=== PATIENT | male | born 2000 | race Caucasian/White ===

== ENCOUNTER → 2023-01-13 08:25 | Outpatient (CLI) | payer OTHER, SELFPAY | PROVIDERS: Visit Provider Nurse Practitioner Family | DX: J02.9 Acute pharyngitis, unspecified (principal) | CPT/HCPCS: 87070 ==

== ENCOUNTER → 2023-01-13 08:27 | Outpatient (CLI) | payer OTHER, SELFPAY ==
[2023-01-13 12:26] LABS: Urine N gonorrhoeae NOT DETECTED
[2023-01-13 12:46] LABS: Urine Chlamydia NOT DETECTED
[2023-01-13 18:51] LABS: HIV 1 & 2 Ab/Ag 4th Gen Combo NEGATIVE (NEGATIVE); Hep C Virus Ab w/Reflex Quant NEGATIVE s/c (NEGATIVE); Hepatitis B Surface Antigen NEGATIVE s/c (NEGATIVE)
[2023-01-14 12:30] LABS: HSV 2 IGG AB < 0.91 index (0.00-0.90); HSV1IGG < 0.91 index (0.00-0.90); RPR Screen Non Reactive (Non Reactive)
== END ==
PROVIDERS: Referring Provider Nurse Practitioner Family; Visit Provider Nurse Practitioner Family
DX: Z11.3 Encounter for screening for infections with a predominantly sexual mode of transmission (principal); J02.9 Acute pharyngitis, unspecified
CPT/HCPCS: 36415; 86592; 86695; 86696; 86803; 87070; 87077; 87147; 87340; 87389; 87491; 87591

== ENCOUNTER 2024-10-03 14:26 | Observation (INO) | payer OTHER, SELFPAY ==
[2024-10-03] VITALS (12 sets, daily range): BP systolic 118–162; BP diastolic 65–93; PULSE 64–74; RESP 16–18; TEMP 37–37.6; O2SAT 98–100; BMI 26.6
[2024-10-03 15:01] LABS: Add Manual Diff / Slide Review NO; Basophils Absolute Auto 100 /uL (0-100); Basophils Percent Auto 0.8 % (0-2); Eosinophils Absolute Auto 200 /uL (0-450); Eosinophils Percent Auto 3.3 % (2-4); Hematocrit 43.2 % (41-53); Hemoglobin 14.5 g/dL (13.5-17.5); Lymphocytes Absolute Auto 1900 /uL (1100-4500); Lymphocytes Percent Auto 27.8 % (25-40); Mean Corpuscular HGB Conc 33.5 % (30-36); Mean Corpuscular Hemoglobin 30.2 PG (26-34); Mean Corpuscular Volume 90.1 fL (80-100); Monocytes Absolute Auto 600 /uL (0-900); Neutrophils Absolute Auto 4100 /uL (1500-7000); Neutrophils Percent Auto 59.1 % (50-75); Platelet Count 360 X10^3/uL (150-400); Red Blood Cell Count 4.79 X10^6/uL (4.5-5.9); Red Cell Distribution Width 12.6 % (11.6-14.8); White Blood Cell Count 6.9 X10^3/uL (4.5-11.0)
[2024-10-03 15:12] LABS: Alanine Aminotransferase 53 IU/L (<50); Albumin Globulin Ratio 1.3 (1.0-2.8); Alkaline Phosphatase 79 U/L (38-126); Aspartate Aminotransferase 44 IU/L (17-59); Calcium 9.6 mg/dL (8.4-10.2); Carbon Dioxide 25 mmol/L (22-32); Chloride 102 mmol/L (98-107); Glucose 89 mg/dL (70-100); HEMOLYSIS < 15 (0-50); Lipase 66 U/L (23-300); Potassium 4.1 mmol/L (3.4-5.1); Sodium 138 mmol/L (137-145)
[2024-10-03 15:23] LABS: BUN Creatinine Ratio 14.7 (6-22); Blood Urea Nitrogen 14 mg/dL (9-20); Estimated Glomerular Filt Rate > 60 mL/min (>60)
--- NOTE | 2024-10-03 18:28 | DI.CT.S_ITS ---
PROCEDURE: CT ABDOMEN PELVIS W CON INDICATIONS: RLQ pain TECHNIQUE: After the administration of intravenous contrast, axial sections acquired from the lung bases to the pubic symphysis. Coronal and sagittal reformats were performed. For radiation dose reduction, the following was used: automated exposure control, adjustment of mA and/or kV according to patient size. COMPARISON: None. FINDINGS: Image quality: Diagnostic. Lower Chest: No significant findings. ABDOMEN: Liver: No solid mass. Gallbladder: No radiopaque gallstones or wall thickening. Biliary ducts: No biliary dilation. Pancreas: No ductal dilation. Spleen: Size is within normal limits. Adrenal Glands: No adrenal nodules. Kidneys and Ureters: No hydronephrosis. No solid mass. No complex renal cystic lesion which requires follow up. Stomach and Bowel: Dilated appendix measuring up to 10 mm in diameter with periappendiceal fat stranding. No calcified appendiculolith is seen. No focal fluid collection or pneumoperitoneum. Small bowel loops and stomach are unremarkable. Peritoneum: No abnormal intraperitoneal fluid. No free air. Ventral Wall: No significant ventral hernia. Abdominal Nodes: No retroperitoneal or mesenteric adenopathy by size criteria. Vessels: Aorta and inferior vena cava are normal in size. PELVIS: Pelvic Organs: Unremarkable. Bladder: No bladder wall thickening, accounting for underdistention. Pelvic Nodes: No enlarged lymph nodes. Miscellaneous: Small fat containing inguinal hernias. Bones: No aggressive osseous abnormality. IMPRESSION: Acute appendicitis. Findings were discussed with the Dr. Snowden of the Emergency Department by telephone on 10/03/2024 at 7:34 PM. Approved by: Paul Merino M.D. on 10/03/2024 at 19:35
--- NOTE | 2024-10-03 19:00 | ED_ITS ---
HPI - Abdominal Pain General Chief Complaint: Abdominal Pain Stated Complaint: per pt appendix pain Time Seen by Provider: 10/03/24 18:59 Source: patient, RN notes reviewed and old records reviewed Mode of arrival: Ambulatory Limitations: no limitations History of Present Illness HPI narrative: 24-year-old male with complaint of right lower quadrant for the past 1-1/2 weeks has been constant for the past 2 days intermittent bilateral flank pain. Patient states pain is localized to the right lower quadrant. Has been present there for about a week is painful when he pushes on it. No fevers. No nausea or vomiting. States he has had normal bowel movements, normal urination. States he has not had any black or bloody stools. Had a brief twinge of testicular pain earlier today but states he thought that was from his pants. Patient states no daily prescription medications. He had did have a prescription for Flexeril for the flank pain but was not helpful. Has had prior surgery on his hand but no other surgeries. Describes an allergy to penicillin amoxicillin as hives at age 6. Denies any regular tobacco, no alcohol or recreational drugs. Related Data Previous Rx's Medication Instructions Recorded cyclobenzaprine 10 mg tablet 10 mg PO BEDTIME PRN muscle spasm 09/27/24 #20 tabs Allergies Allergy/AdvReac Type Severity Reaction Status Date / Time Penicillins Allergy Intermediate Hives Verified 10/03/24 14:44 amoxicillin Allergy Intermediate Hives Uncoded 10/03/24 14:44 Review of Systems Review of Systems ROS Unobtainable: All systems reviewed & are unremarkable except as noted in HPI and below Patient History Social History Smoking Status: Unknown if ever smoked Smoking Status: Unknown if ever smoked Exam Narrative Exam Narrative: GENERAL: Alert and oriented x three, male in mild distress HEENT: Head normocephalic, atraumatic, EOMI, pupils reactive, face symmetric, moist mucous membranes NECK: Supple, full range of motion CARDIOVASCULAR: Regular rate and rhythm without murmurs, rubs or gallops. RESPIRATORY: Breath sounds equal bilaterally, no wheezes rales or rhonchi. ABDOMEN: Soft, mild tenderness in the right lower quadrant. Normoactive bowel sounds all 4 quadrants. No guarding or rebound, rigidity, no mass : No CVA tenderness EXTREMITIES: Normal range of motion, no clubbing or edema. Neurovascularly intact NEUROLOGICAL: Cranial nerves II through XII grossly intact. Moving all extremities SKIN: Warm, dry, no petechiae, no rashes or lesions. Initial Vital Signs Initial Vital Signs: Vital Signs Temperature 98.6 F 10/03/24 14:39 Pulse Rate 74 10/03/24 14:39 Respiratory Rate 16 10/03/24 14:39 Blood Pressure 153/76 H 10/03/24 14:39 Pulse Oximetry 98 10/03/24 14:39 Oxygen Delivery Method Room Air 10/03/24 14:39 Course Orders Ordered: ED Orders 10/03/24 14:44 EKG-12 Lead Stat 10/03/24 14:52 Complete Blood Count AUTO DIFF Stat Comprehensive Metabolic Panel Stat Lipase Stat 10/03/24 18:28 CT abdomen pelvis w con Stat Metronidazole (Flagyl) 500 mg in 100 mls @ 100 mls/hr IV NOW ONE Stop: 10/03/24 20:42 Last Admin: 10/03/24 20:10 Dose: 100 mls/hr Documented By: Ciprofloxacin (Cipro) 400 mg in 200 mls @ 200 mls/hr IV NOW ONE Stop: 10/03/24 20:42 Discontinued Medications Ondansetron HCl (Ondansetron 4 Mg/2 Ml Inj) 4 mg IV NOW PRN PRN Reason: Nausea And Vomiting Ondansetron HCl (Ondansetron 4 Mg Odt) 4 mg PO NOW PRN PRN Reason: Nausea And Vomiting Vital Signs Vital signs: Vital Signs - 8 hr 10/03/24 14:39 10/03/24 15:57 10/03/24 15:59 Temperature 98.6 F Pulse Rate 74 69 70 Respiratory Rate 16 Blood Pressure 153/76 H Pulse Oximetry 98 100 99 Oxygen Delivery Method Room Air 10/03/24 15:59 10/03/24 16:00 10/03/24 16:01 Temperature Pulse Rate 71 71 Respiratory Rate Blood Pressure 134/93 H Pulse Oximetry 100 99 Oxygen Delivery Method 10/03/24 16:01 10/03/24 16:30 10/03/24 16:30 Temperature Pulse Rate 69 Respiratory Rate Blood Pressure 162/85 H 127/81 Pulse Oximetry 99 Oxygen Delivery Method 10/03/24 16:47 10/03/24 16:47 10/03/24 17:00 Temperature Pulse Rate 67 67 Respiratory Rate 18 Blood Pressure 138/65 Pulse Oximetry 100 98 Oxygen Delivery Method Room Air 10/03/24 17:00 10/03/24 17:30 10/03/24 17:30 Temperature Pulse Rate 67 Respiratory Rate Blood Pressure 128/70 118/73 Pulse Oximetry 99 Oxygen Delivery Method 10/03/24 18:00 10/03/24 18:00 Temperature Pulse Rate 64 Respiratory Rate Blood Pressure 120/75 Pulse Oximetry 99 Oxygen Delivery Method MDM - Abdominal Pain Lab Data 10/03/24 14:52 10/03/24 14:52 Labs: Lab Results 10/03/24 Range/Units 14:52 WBC 6.9 (4.5-11.0) X10^3/uL RBC 4.79 (4.5-5.9) X10^6/uL Hgb 14.5 (13.5-17.5) g/dL Hct 43.2 (41-53) % MCV 90.1 (80-100) fL MCH 30.2 (26-34) PG MCHC 33.5 (30-36) % RDW 12.6 (11.6-14.8) % Plt Count 360 (150-400) X10^3/uL Neut % (Auto) 59.1 (50-75) % Lymph % (Auto) 27.8 (25-40) % [place] % (Auto) 9.0 (3-14) % Eos % (Auto) 3.3 (2-4) % Baso % (Auto) 0.8 (0-2) % Neut # (Auto) 4100 (2553-3939) /uL Lymph # (Auto) 1900 (6333-1375) /uL [place] # (Auto) 600 (0-900) /uL Eos # (Auto) 200 (0-450) /uL Baso # (Auto) 100 (0-100) /uL Sodium 138 (137-145) mmol/L Potassium 4.1 (3.4-5.1) mmol/L Chloride 102 (98-107) mmol/L Carbon Dioxide 25 (22-32) mmol/L BUN 14 (9-20) mg/dL Creatinine 0.95 (0.66-1.25) mg/dL Estimated GFR > 60 (>60) mL/min BUN/Creatinine Ratio 14.7 (6-22) Glucose 89 (70-100) mg/dL Calcium 9.6 (8.4-10.2) mg/dL Total Bilirubin 1.0 (0.2-1.3) mg/dL AST 44 (17-59) IU/L ALT 53 H (<50) IU/L Alkaline Phosphatase 79 (38-126) U/L Total Protein 9.0 H (6.3-8.2) g/dL Albumin 5.0 (3.5-5.0) g/dL Globulin 4.0 (1.7-4.1) g/dL Albumin/Globulin Ratio 1.3 (1.0-2.8) Lipase 66 (23-300) U/L Point of care testing: Urine Dip Bedside Urine Glucose Negative Bedside Urine Bilirubin - Negative Bedside Urine Ketone - Negative Urine Specific [place] 1.020 Bedside Urine Occult Blood - Negative Bedside Urine pH 6.0 Bedside Urine Protein - Negative Bedside Urine Urobilinogen - Negative Bedside Urine Nitrite - Negative Bedside Urine Leukocytes - Negative Esterase Imaging Data CT scan - abdomen/pelvis: Radiologist's Impression: Close Abdomen/Pelvis CT (Signed) Paul Merino - 10/03/24 [place] [address] CT Scan Report Signed Patient: Elie Davis MR#: [id number] : 2000 Acct:[id number] Age/Sex: 24 / M Date of Service: 10/03/24 Loc: ED Accession Number: [id number] Procedure: CT abdomen pelvis w con Ordering Provider: Gregoria Mendez D.O. PROCEDURE: CT ABDOMEN PELVIS W CON INDICATIONS: RLQ pain TECHNIQUE: After the administration of intravenous contrast, axial sections acquired from the lung bases to the pubic symphysis. Coronal and sagittal reformats were performed. For radiation dose reduction, the following was used: automated exposure control, adjustment of mA and/or kV according to patient size. COMPARISON: None. FINDINGS: Image quality: Diagnostic. Lower Chest: No significant findings. ABDOMEN: Liver: No solid mass. Gallbladder: No radiopaque gallstones or wall thickening. Biliary ducts: No biliary dilation. Pancreas: No ductal dilation. Spleen: Size is within normal limits. Adrenal Glands: No adrenal nodules. Kidneys and Ureters: No hydronephrosis. No solid mass. No complex renal cystic lesion which requires follow up. Stomach and Bowel: Dilated appendix measuring up to 10 mm in diameter with periappendiceal fat stranding. No calcified appendiculolith is seen. No focal fluid collection or pneumoperitoneum. Small bowel loops and stomach are unremarkable. Peritoneum: No abnormal intraperitoneal fluid. No free air. Ventral Wall: No significant ventral hernia. Abdominal Nodes: No retroperitoneal or mesenteric adenopathy by size criteria. Vessels: Aorta and inferior vena cava are normal in size. PELVIS: Pelvic Organs: Unremarkable. Bladder: No bladder wall thickening, accounting for underdistention. Pelvic Nodes: No enlarged lymph nodes. Miscellaneous: Small fat containing inguinal hernias. Bones: No aggressive osseous abnormality. IMPRESSION: Acute appendicitis. Findings were discussed with the Dr. Snowden of the Emergency Department by telephone on 10/03/2024 at 7:34 PM. Approved by: Paul Merino M.D. on 10/03/2024 at 19:35 MDM Narrative Medical decision making narrative: Labs show white count of 6.9 hemoglobin of 14.5, platelets of 360. Electrolytes are normal BUN 14 creatinine 0.95, glucose 89 ALT is 53 ALT is 44, bilirubin is 1 with a lipase a 66. poc urine is negative. CT abdomen pelvis shows acute appendicitis with dilated appendix measuring 10 mm with periappendiceal fat stranding no calcified appendicolith no fluid collection or pneumoperitoneum otherwise unremarkable. [address] Muñoz, general surgery admission plan for OR tomorrow discussed patient has penicillin amoxicillin allergy with hives asked that we give Cipro and Flagyl for antibiotics. Discussed with patient findings. NPO after midnight. Discharge Plan Departure Patient Disposition: Admitted As Inpatient Clinical Impression: Acute appendicitis Admit Date/Time: 10/03/24 19:50 Admit Provider: Arjun Alvarez
[2024-10-03] MEDS: metroNIDAZOLE 500 MG/100 ML PIGGYBACK 100 MG IV (20:10)
[2024-10-03] MEDS: CIPROFLOXACIN 400 MG/200 ML PIGGYBACK 200 MG IV (21:10)
[2024-10-03] MEDS: SODIUM CHLORIDE 0.9% 1,000 ML 125 ML IV (23:19)
[2024-10-04] VITALS (14 sets, daily range): BP systolic 95–142; BP diastolic 47–95; PULSE 18–100; RESP 12–24; TEMP 36.2–37.1; O2SAT 95–100; BMI 26.6
--- NOTE | 2024-10-04 | PATH_ITS ---
[facility] Accession Number: [id number] No. of containers..01 Tissue . 01 Material submitted: . appendix - APPENDIX . 01 Diagnosis: APPENDIX, APPENDECTOMY: Acute appendicitis with serositis. TAHIR 10/08/2024 1203 Local . 01 Electronically signed: . Alida Forrest DO, Pathologist NPI- [id number] . 01 Gross description: . Received in formalin with two identifiers and appendix, is a curran vermiform appendix 5.5 cm in length by 1.2 cm in diameter. The serosa is curran and smooth with adherent material consistent with exudate. The mesoappendix extends out to 1.7 cm. The margin is inked blue and sectioning reveals that the lumen is patent and ranges from 0.1 to 0.3 cm in greatest dimension filled with a small amount of cloudy purulent material. The burgess measure up to 0.7 cm thick with no distinct lesions identified. Fountain Pen Nibs Inspector sections to include the margin, one-half of the bisected distal tip, and cross-sections are submitted in cassette A1. ([id number]) /TAHIR 10/05/20248 Local . 01 Pathologist provided ICD-10: K35.80 . 01 CPT . 512665 Specimen Comment: A courtesy copy of this report has been sent to [facility] Pathology Performed at: [address] [address], [place], [place] [id number] MD Ernesto Walter MD Phone: [phone]
[2024-10-04] MEDS: metroNIDAZOLE 500 MG/100 ML PIGGYBACK 100 MG IV ×2 (05:16→13:00)
[2024-10-04] MEDS: CIPROFLOXACIN 400 MG/200 ML PIGGYBACK 200 MG IV (09:13)
[2024-10-04] MEDS: LACTATED RINGERS 1,000 ML 42 ML IV (09:28)
[2024-10-04] MEDS: ACETAMINOPHEN 325 MG TABLET 650 MG PO ×2 (09:49→18:12)
[2024-10-04] MEDS: LIDOCAINE 1% W/EPI 20ML 20 ML INJ (10:25)
--- NOTE | 2024-10-04 10:57 | PC.NURSE ---
Patient is transported via bed to Preop area at approximately 0930.
--- NOTE | 2024-10-04 10:58 | CM.DANOTE ---
Addendum entered by SARAH Lopez 10/04/24 15:44: ADD: RUBENS also notified TCM team as pt has establish care apt with Dr. Tristin Obregon coming up in November 2024 and inquired if they could attempt to get pt seen in the next 2 weeks since he was admitted to the hospital. BF Addendum entered by SARAH Lopez 10/04/24 15:37: ADD: Per Surgeon, pt tolerated procedure well and if his pain is managed this evening then he can discharge home with outpt f/u. SW met bedside with pt and his girlfriend and he confirms he is independent at baseline and preference is home tonight if pain managed and gf confirms she will stay with him and provide assist as needed. 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 RUBENS provided requested letter and also scanned pt's secondary insurance card and notified Admissions Counselors to add to his EMR for billing purposes and updated pt on calling patient accounts with any questions if he gets a bill. RN providing discharge instructions and plan of gf to transport pt across the street to his apt and will assist as needed. SARAH Lopez Original Note: Patient is a 24 yo male who was admitted 10/03/24 OBS Status for Acute Appendicitis. Pt has [employer] PPO for insurance and no PCP listed. EMR was reviewed. Per ED MD, pt with acute appendicitis and consulted Surgeon in the ED and decision for admission and plan of lap appe. No Surgeon note yet and per rivet hole puncher pt was taken to the OR this morning prior to bedside assessment with RUBENS. Per RN, pt lives in [place] in an apt alone and works for the [employer] and is active and independent at baseline. Plan: RUBENS to meet bedside with pt post surgery today to confirm safe discharge plan and any further identified discharge planning needs. SARAH Lopez Discharge Planning/Care Management CM Discharge Assessment Start: 10/04/24 10:56 Freq: Status: Active Protocol: Document 10/04/24 10:57 BF (Rec: 10/04/24 10:58 BF [id number]) Discharge Planning Assessment Assigned [employer] Weapons Sergeant Domonique, OCCUPATIONAL THERAPY AIDE DPOA/Assigned Designee Name none, informally mother Contact Information Jaycee [phone] Advance Directives? No Advance Directives on File No History Provided By Patient,Medical Record Has Patient been admitted in last 30 No days? Prior Living Arrangements Apartment/Condo Household Members none Type of transporation used prior to Drives own vehicle admit Independent with ADL's Yes Is patient alert and oriented? Yes Caregiver for Another No Barriers to Discharge No Discharge Plan Home Transportation Arrangement Likely family to transport at d/c Referrals Initiated None needed Additional Comment Pending progress post surgery today Review Status In Process Please Provide Date Initial DC 10/04/24 Assessment Was Performed Next Review Type Continued Stay Review
[2024-10-04] MEDS: BUPIVACAINE 0.5% (PF) 30 ML VIAL INJ (11:09)
--- NOTE | 2024-10-04 11:22 | P.OP_ITS ---
Operative Date/Time/Diagnoses Date of procedure: 10/04/24 Time of procedure: 11:22 Pre-op diagnosis: Acute appendicitis Post-op diagnosis: same Procedure & Clinicians Same procedure as scheduled: Yes Surgeon: Arjun Alvarez Anesthesia Type: General Operative Notes Findings: LAPAROSCOPIC APPENDECTOMY OPERATIVE NOTE Elie Davis, 2000, 24, Male, CSN: [id number] 10/04/24 PRE-OP DIAGNOSIS: Acute Appendicitis POST-OP DIAGNOSIS: Same PROCEDURE(S): Laparoscopic Appendectomy. SURGEON(S): Arjun Alvarez MD, FACS, FICS STRADDLE BUGGY OPERATOR(S): NONE ANESTHESIA: GET + Local 1% Xylocaine with Epinephrine, 0.5% Marcaine, mixed, 50% : 50% SPECIMENS: Appendix. ESTIMATED BLOOD LOSS: Less then 2 ml DRAIN: NONE COMPLICATIONS: NONE CONDITION / DISPOSITION: Stable, Extubated, to PACU OPERATIVE DESCRIPTION: After properly informed consent was signed by the patient, knowing all the risks, benefits, potential complications and possible alternatives of the procedure, the patient, who had right lower quadrant for one week, with some nausea and a CT demonstrating an acute uncompli cated appendicitis. The patient was appropriately identified. In the holding area he received Cipro and Flagyl IV. TEDs and SCDs were placed on his legs and activated bilaterally. He voided his urinary bladder land conservation specialist to OR, and Hibiclens skin prep was performed. He was taken to the operating room, and was placed supine on the operating room table, and after institution of general endotracheal anesthesia, his abdomen was prepped and draped in the usual sterile fashion after his abdominal and suprapubic hair were clipped. The above mentioned anesthetic mixture was used to anesthetize the skin at the intradermal level, followed by the preperitoneal level. Starting at the inferior aspect of the umbilical, a 1 cm vertical incision was performed. Dissection was carried down all the way the fascia. The fascia was opened longitudinally for 1 cm. The peritoneal cavity was entered under direct visualization uneventfully. A oidena-ko-bhjzw #0 Vicryl was placed for future closure of this umbilical fascial defect. The Lakisha cannula was introduced under direct visualization. Pneumoperitoneum was instituted using CO2 insufflation up to 14 mmHg pressure. A 5-mm 30-degree scope was introduced, and confirmation of the diagnosis was obvious. Some reactive ascites was noted in the pelvis. No perforation, no suppurative inflammation. Two 5-mm ports were placed, suprapubic midline port and left lower quadrant midclavicular line port. All ports were 12 cm apart one from the other in a triangular shape fashion. Lysis of adhesions between the appendix and the lateral pelvic wall, and omentum. The mesoappendix was taken meticulously using the Harmonic scalpel uneventfully. The base of the appendix was circumferentially skeletonized, triply ligated using 0 looped PDS, 2 on the cecal side, 1 on the appendix side. The appendix was divided in between. It was then placed into the EndoCatch bag introduced through the umbilical port after switching the camera to the left lower quadrant port. Suction of the reactive ascites was performed. The appendix was sent to permanent pathology. All ports were removed under direct visualization without any evidence of port site bleeding. Pneumoperitoneum was evacuated. The preplaced #0 Vicryl was tied to approximate the mid umbilical fascial defect. The skin of all wounds were approximated using 4-0 Antibacterial Monocryl in a running subcuticular fashion, followed by SureClose skin glue after further more local anesthetic was injected. Patient tolerated both procedures well very well without any complications, was extubated in the OR, and sent to the PACU in stable condition. Arjun Alvarez MD, FACS, FICS
--- NOTE | 2024-10-04 11:23 | P.HP_ITS ---
History of Present Illness History of Present Illness Date Patient Seen: 10/04/24 Time Patient Seen: 09:00 Date of Onset of Symptoms: 09/28/24 Chief complaint: per pt appendix pain Narrative: Pt had RLQ pain, since last Tuesday, but got worse last evening, and came to the ER. Was found to have appendicitis, NOT perf, not ruptured, will take to surgery ALENA, and proceed with lap appendectomy. [facility] Social History household members: none Smoking Status: Former smoker Meds Home Medications and Allergies Home Medications Medication Instructions Recorded Confirmed Type No Known Home Medications 10/04/24 10/04/24 History Allergies Allergy/AdvReac Type Severity Reaction Status Date / Time Penicillins Allergy Intermediate Hives Verified 10/03/24 14:44 amoxicillin Allergy Intermediate Hives Uncoded 10/03/24 14:44 Review of Systems Review of Systems ROS: Yes All systems reviewed with the patient and are negative except as otherwise documented Exam Vital Signs (past 8 hours): - 10/04/24 08:00 10/04/24 09:42 Temperature 98.3 F 98.2 F Pulse Rate 68 79 Respiratory Rate 16 16 Blood Pressure 126/80 127/89 Pulse Oximetry 97 98 Oxygen Delivery Method Room Air Oxygen Flow Rate 0 Oxygen Delivery Method Room Air Oxygen Flow Rate 0 Narrative Exam Narrative: RLQ tender, but NO peritoneal signs. Objective Labs 10/03/24 14:52 10/03/24 14:52 Labs: Laboratory Results - last 24 hr 10/03/24 14:52 WBC 6.9 RBC 4.79 Hgb 14.5 Hct 43.2 MCV 90.1 MCH 30.2 MCHC 33.5 RDW 12.6 Plt Count 360 Neut % (Auto) 59.1 Lymph % (Auto) 27.8 [place] % (Auto) 9.0 Eos % (Auto) 3.3 Baso % (Auto) 0.8 Neut # (Auto) 4100 Lymph # (Auto) 1900 [place] # (Auto) 600 Eos # (Auto) 200 Baso # (Auto) 100 Sodium 138 Potassium 4.1 Chloride 102 Carbon Dioxide 25 BUN 14 Creatinine 0.95 Estimated GFR > 60 BUN/Creatinine Ratio 14.7 Glucose 89 Calcium 9.6 Total Bilirubin 1.0 AST 44 ALT 53 H Alkaline Phosphatase 79 Total Protein 9.0 H Albumin 5.0 Globulin 4.0 Albumin/Globulin Ratio 1.3 Lipase 66 Assessment & Plan Assessment and plan (1) Acute appendicitis: Problem details: Pt had RLQ pain, since last Tuesday, but got worse last evening, and came to the ER. Was found to have appendicitis, NOT perf, not ruptured, will take to surgery ALENA, and proceed with lap appendectomy. Status: Acute Time-Based Coding :: [TOTAL MINUTES] spent with patient and on the chart (including review of chart, obtaining history, exam, reviewing outside data, placing orders, documenting exam and treatment plan, and counseling patient) on [DATE]. PROFEE Breading Machine Tender Document charge(s): Yes
[2024-10-04] MEDS: ONDANSETRON 4 MG/2 ML INJ IV (11:31)
[2024-10-04] MEDS: OXYCODONE IR 5 MG TABLET PO (11:42)
[2024-10-04] MEDS: LACTATED RINGERS 500 ML 1000 ML IV (12:00)
[2024-10-04] MEDS: ACETAMINOPHEN IV 1,000 MG/100 ML VIAL 400 MG IV (12:07)
[2024-10-04] MEDS: hydrOXYzine 50 MG/ML INJ 25 MG IM (12:11)
[2024-10-04] MEDS: HYDROMORPHONE 1 MG INJ IV (12:12)
[2024-10-04] MEDS: SENNOSIDES 8.6 MG TABLET 17.2 MG PO (12:51)
[2024-10-04] MEDS: LACTATED RINGERS 1,000 ML 125 ML IV (12:53)
[2024-10-04] MEDS: HYDROMORPHONE 0.5 MG INJ 1 MG IV ×2 (13:12→18:58)
[2024-10-04] MEDS: HYDROCODONE/ACET 5/325 TABLET 1 TAB PO ×2 (16:02→20:25)
--- NOTE | 2024-10-04 16:33 | PC.NURSE ---
Addendum entered by Crystal Galdamez R.N. 10/05/24 10:17: Patient expressed at 1800 on 10/04 that he was feeling increased discomfort in abdomen and upper R shoulder and wanted to stay overnight for observation and pain control. MD Alvarez notified and discharge cancelled. He awakens this a.m. and requests to discharge he complains of moderate abdominal discomfort 5-6/10 but R shoulder painis more severe. Educated patient about gas that sometimes becomes trapped during surgery, and how it takes time and movement to expel. He acknowledged understanding, and MD notified and cleared patient for discharge this a.m. VSS,afebrile on RA. He tolerated breakfast well and reports passing gas. He ambulates independently without difficulty. He is escorted to hospital entrance for discharge home today with girlfriend at approximately 0900 this a.m. with all of his belongings. Original Note: Patient is A&OX4, VSS, afebrile on RA. He returns from PACU at approximately 1215 pm. He is slightly groggy and reports pain 8-9/10 initially. Lap sites to abdomen x3 FERNIE (dermabond) CDI. MD notified for additional dose of IV pain medication. He reports pain much improved slightly after and is able to stand up, ambulate and void. He tolerates late meal tray well and denies n/v/. MD at bedside this afternoon clearing patient for discharge home this evening if pain continues to be tolerable and he expresses that he would like to d/c home. Activity limitations, medications, site care, and s/sx of complication reviewed with patient and his girlfriend at bedside. He acknowledges understanding and asks appropriate questions. LYLE Youssef provided letter for return to work for patient per MD Alvarez, patient instructed no lifting greater than 15 lbs x 6 weeks. Patient verbalized understanding and agreement with this plan of care.
[2024-10-05] MEDS: HYDROCODONE/ACET 5/325 TABLET 1 TAB PO ×3 (02:52→08:53)
[2024-10-05 08:00] VITALS: BP 106/67; PULSE 69; RESP 12; TEMP 37.1; O2SAT 97
[2024-10-05] MEDS: SENNOSIDES 8.6 MG TABLET 17.2 MG PO (08:16)
--- NOTE | 2024-10-12 06:20 | PC.NURSE ---
Late entry for 10/05/24: [place] 5/325 1 tab administered at 02:50 per pt request.
== END 2024-10-05 08:55 | disposition home or self-care (01) ==
LOC: ED 19:48 → AC 20:59
PROVIDERS: Emergency Medicine; Admitting Provider Surgery; Emergency Provider Emergency Medicine; Referring Provider Emergency Medicine; Visit Provider Surgery
PROC: 0DTJ4ZZ Resection of Appendix, Percutaneous Endoscopic Approach (ICD-10-PCS; CPT 44970; principal; 2024-10-04 10:00)
DX: K35.80 Unspecified acute appendicitis (principal); Z87.891 Personal history of nicotine dependence
CPT/HCPCS: 44970; 36415; 74177; 80053; 81003; 83690; 85025; 96365; 96366; 96367; 96368; 96372; 96375; 96376; 99222; 99283; 99284; G0378; J0134; J0744; J1171; J2250; J2405; J2704; J3010; J3410; Q9967

== ENCOUNTER → 2024-10-09 09:14 | Outpatient (CLI) | payer OTHER, SELFPAY ==
[2024-10-03 20:55] VITALS: BMI 26.6
[2024-10-09 09:49] LABS: Hematocrit 43.4 % (41-53); Hemoglobin 14.6 g/dL (13.5-17.5); Mean Corpuscular HGB Conc 33.6 % (30-36); Mean Corpuscular Hemoglobin 29.8 PG (26-34); Mean Corpuscular Volume 88.7 fL (80-100); Platelet Count 362 X10^3/uL (150-400); Red Cell Distribution Width 12.6 % (11.6-14.8)
[2024-10-09 10:10] LABS: Alanine Aminotransferase 58 IU/L (<50); Albumin 4.3 g/dL (3.5-5.0); Albumin Globulin Ratio 1.3 (1.0-2.8); Alkaline Phosphatase 65 U/L (38-126); Aspartate Aminotransferase 51 IU/L (17-59); BUN Creatinine Ratio 16.5 (6-22); Bilirubin Total 0.5 mg/dL (0.2-1.3); Blood Urea Nitrogen 15 mg/dL (9-20); Carbon Dioxide 29 mmol/L (22-32); Chloride 100 mmol/L (98-107); Estimated Glomerular Filt Rate > 60 mL/min (>60); Globulin 3.2 g/dL (1.7-4.1); Glucose 94 mg/dL (70-100); HEMOLYSIS < 15 (0-50); Potassium 4.3 mmol/L (3.4-5.1); Sodium 137 mmol/L (137-145); Total Protein 7.5 g/dL (6.3-8.2)
[2024-10-09 18:20] LABS: Appearance Urine UA CLEAR; Bilirubin Urine UA NEGATIVE (NEGATIVE); Color Urine UA YELLOW; Glucose Urine UA NEGATIVE (Negative); Ketones Urine UA NEGATIVE (NEGATIVE); Leukocyte Esterase Urine UA NEGATIVE (NEGATIVE); Nitrite Urine UA NEGATIVE (Negative); Occult Blood Urine UA TRACE-INTACT (Negative); Protein Urine UA NEGATIVE (Negative); Specific Gravity Urine UA 1.015 (1.000-1.035); Urobilinogen Urine UA 0.2 E.U./dL (0.2); pH Urine UA 6.5 (4.5-8.0)
[2024-10-09 18:26] LABS: Bacteria Urine Occasional (0-1); Culture Indicated Urine Cult Not Indicated; RBC Urine 0-1/HPF (0-5/HPF); Squamous Epithelial Cell Urine 0-1 /HPF (0-5/HPF); Urine Volume 10mL (spun); WBC Urine 0-1/HPF (0-5/HPF)
== END ==
PROVIDERS: PCP Family Medicine; Referring Provider Family Medicine; Visit Provider Family Medicine
DX: Z90.49 Acquired absence of other specified parts of digestive tract (principal)
CPT/HCPCS: 36415; 80053; 81001; 85027

== ENCOUNTER → 2025-08-02 14:43 | Outpatient (CLI) | payer OTHER, SELFPAY ==
[2024-10-03 20:55] VITALS: BMI 26.6
[2025-08-02 16:41] LABS: Influenza A - CEPHEID Flu A NEGATIVE (NEGATIVE); Influenza B - CEPHEID Flu B NEGATIVE (NEGATIVE)
[2025-08-02 16:43] LABS: COVID-19 CEPHEID 4-PLEX PCR Negative (Negative)
== END ==
PROVIDERS: PCP Family Medicine; Visit Provider Chiropractor
DX: J02.9 Acute pharyngitis, unspecified (principal); R05.1 Acute cough
CPT/HCPCS: 87070; 87637

== ENCOUNTER → 2025-08-02 14:57 | Outpatient (CLI) | payer OTHER, SELFPAY ==
[2024-10-03 20:55] VITALS: BMI 26.6
--- NOTE | 2025-08-02 14:59 | DI.RAD.S_ITS ---
PROCEDURE: XR CHEST 2V INDICATIONS: Short of breath, please evaluate for pneumonia TECHNIQUE: 2 views of the chest were acquired. COMPARISON: None. FINDINGS: Surgical changes and devices: None. Lungs and pleura: Lungs are clear. No pleural effusions or pneumothorax. Mediastinum: Mediastinal contours are normal. Heart size is normal. Bones and chest wall: No suspicious bony abnormalities. Soft tissues appear unremarkable. IMPRESSION: Clear lungs, without infiltrates. Dictated by: Myron Rios M.D. on 08/02/2025 at 14:15 Approved by: Myron Rios M.D. on 08/02/2025 at 14:16
== END ==
LOC: RAD 14:58
PROVIDERS: PCP Family Medicine; Referring Provider Chiropractor; Visit Provider Chiropractor
DX: R06.02 Shortness of breath (principal)
CPT/HCPCS: 71046; 87070; 87637

== ENCOUNTER 2025-08-04 18:27 | Emergency (ER) | payer OTHER, SELFPAY ==
[2024-10-03 20:55] VITALS: BMI 26.6
[2025-08-04 18:38] VITALS: BP 144/91; PULSE 83; RESP 19; TEMP 36.8; O2SAT 100; BMI 29.6
--- NOTE | 2025-08-04 18:39 | ED_ITS ---
HPI - SOB/Dyspnea General Chief Complaint: Shortness of Breath/Dyspnea Stated Complaint: visited [facility], SOB, inhaler no help, wheezing/cough Time Seen by Provider: 08/04/25 18:39 History of Present Illness HPI Narrative: Patient is a 24-year-old male no pertinent past medical history comes into the ED from home for evaluation of persistent/worsening shortness breath, states it has been ongoing persistent for the past week, states that he works it [employer], states that he may have been exposed to some chemicals, however he states that he went into a walk-in clinic yesterday got a chest x-ray and was tested for COVID flu which was negative. He states that he used his inhaler but states that he feels like his shortness breath is worse, on evaluation is speaking full sentences protecting airway not requiring any supplemental oxygen auscultation bilateral lung florez are clear without any wheezes rhonchi or rales. Related Data Previous Rx's ?Medication ?Instructions ?Recorded albuterol sulfate 90 mcg/actuation 2 puff inhalation Q 6H PRN 08/02/25 aerosol inhaler shortness of breath or wheez ing #8.5 grams azithromycin 250 mg tablet 250 mg PO DAILY 4 days #6 t abs 08/04/25 Allergies Allergy/AdvReac Type Severity Reaction Status Date / Time Penicillins Allergy Intermediate Hives Verified 08/04/25 18:43 amoxicillin Allergy Intermediate Hives Uncoded 08/04/25 18:43 Review of Systems Review of Systems Narrative: General: Denies fever, chills, weight loss HEENT: Denies headache, eye drainage, eye irritation, head trauma, sore throat, voice change Cardiovascular: Denies any chest pain, palpitations, tachycardia Respiratory: Positive shortness of breath, cough, denies wheeze, stridor GI/: Denies any abdominal pain, nausea, vomiting, diarrhea, bright red blood per rectum, melanotic stools, urinary frequency, urinary retention, dysuria, hematuria MSK: Denies any joint pain, muscle pains, swelling Skin: Denies any rashes, lesions, discoloration Neuro: Denies any headache, lightheadedness, dizziness, fainting, weakness Psych: Denies SI/HI Patient History Medical History Acute appendicitis Surgical History History of laparoscopic appendectomy (10/04/24) Social History household members: none Smoking Status: Never smoker Exam Narrative Exam Narrative: General: Cooperative, well-developed, not in acute distress HEENT: Normocephalic, atraumatic, PERRLA, normal sclera, eyelids normal Neck: Active full range of motion, atraumatic Chest: Normal to inspection, negative crepitus, no overlying erythema ecchymosis Respiratory: Normal respiratory effort, not in acute respiratory distress, clear to auscultation bilaterally negative cough, wheeze, tachypnea, rhonchi, rales Cardiology: Regular rate rhythm negative gallop, murmur, rubs GI/: No tenderness to palpation, soft, non rigid, normal to inspection, exam deferred MSK: Full active range of motion in all 4 extremities, atraumatic, no tenderness to palpation of any bony prominences Skin: No rashes or lesions noted Neuro: Alert awake oriented x3, moves all 4 extremities spontaneously, cranial nerves intact, able to answer all questions appropriately follows commands appropriately Psych: Cooperative, negative suicidal or homicidal ideations Initial Vital Signs Initial Vital Signs: Vital Signs Temperature 98.2 F 08/04/25 18:38 Pulse Rate 83 08/04/25 18:38 Respiratory Rate 19 08/04/25 18:38 Blood Pressure 144/91 H 08/04/25 18:38 Pulse Oximetry 100 08/04/25 18:38 Oxygen Delivery Method Room Air 08/04/25 18:38 Course Orders Ordered: ED Orders 08/04/25 18:39 CT angio chest PE protocol Stat 08/04/25 18:40 EKG-12 Lead Stat 08/04/25 19:14 CBC Auto Diff [Complete Blood Count AUTO DIFF] Stat CMP [Comprehensive Metabolic Panel] Stat Lipase Stat MAG [Magnesium] Stat NT-proBNP (BNP-Adult 18+) Stat 08/04/25 19:19 Respiratory Panel (Film Array) Stat Discontinued Medications Albuterol (Albuterol 2.5 Mg/3 Ml Neb (Adult)) 2.5 mg INH NOW ONE Stop: 08/04/25 18:40 Last Admin: 08/04/25 18:58 Dose: 2.5 mg Documented By: BENNIE Azithromycin (Azithromycin 250 Mg Tablet) 500 mg PO NOW ONE Stop: 08/04/25 21:03 Methylprednisolone (Methylprednisolone Succ 125 Mg/2 Ml Vial) 125 mg IV NOW ONE Stop: 08/04/25 18:40 Last Admin: 08/04/25 19:03 Dose: 125 mg Documented By: PER Vital Signs Vital signs: Vital Signs - 8 hr 08/04/25 18:38 08/04/25 18:58 Temperature 98.2 F Pulse Rate 83 Respiratory Rate 19 Blood Pressure 144/91 H Pulse Oximetry 100 Oxygen Delivery Method Room Air Room Air MDM - SOB/Dyspnea Lab Data 08/04/25 19:14 08/04/25 19:14 Labs: Lab Results 08/04/25 08/04/25 Range/Units 19:14 19:19 WBC 11.4 H (4.5-11.0) X10^3/uL RBC 4.82 (4.5-5.9) X10^6/uL Hgb 14.1 (13.5-17.5) g/dL Hct 41.8 (41-53) % MCV 86.7 (80-100) fL MCH 29.2 (26-34) PG MCHC 33.7 (30-36) % RDW 13.1 (11.6-14.8) % Plt Count 357 (150-400) X10^3/uL Neut % (Auto) 46.2 L (50-75) % Lymph % (Auto) 41.7 H (25-40) % [place] % (Auto) 7.9 (3-14) % Eos % (Auto) 3.2 (2-4) % Baso % (Auto) 1.0 (0-2) % Neut # (Auto) 5300 (0474-0212) /uL Lymph # (Auto) 4800 H (8964-2643) /uL [place] # (Auto) 900 (0-900) /uL Eos # (Auto) 400 (0-450) /uL Baso # (Auto) 100 (0-100) /uL Sodium 140 (137-145) mmol/L Potassium 3.2 L (3.4-5.1) mmol/L Chloride 105 (98-107) mmol/L Carbon Dioxide 23 (22-32) mmol/L BUN 20 (9-20) mg/dL Creatinine 0.86 (0.66-1.25) mg/dL Estimated GFR > 60 (>60) mL/min BUN/Creatinine Ratio 23.3 H (6-22) Glucose 111 H (70-99) mg/dL Calcium 9.3 (8.4-10.2) mg/dL Magnesium 2.0 (1.6-2.3) mg/dL Total Bilirubin 0.5 (0.2-1.3) mg/dL AST 37 (17-59) IU/L ALT 42 (<50) IU/L Alkaline Phosphatase 89 (38-126) U/L NT-Pro-B Natriuret Pep 66 (<125) pg/mL Total Protein 8.4 H (6.3-8.2) g/dL Albumin 4.7 (3.5-5.0) g/dL Globulin 3.7 (1.7-4.1) g/dL Albumin/Globulin Ratio 1.3 (1.0-2.8) Lipase 124 (23-300) U/L Chlamy pneumoniae PCR Not detected (Not Detect) Adenovirus (PCR) Not detected (Not Detect) B. pertussis DNA (PCR) Not detected (Not Detect) B.parapertussis DNA PCR Not detected (Not Detecte) Coronavirus OC43 (PCR) Not detected (Not Detect) Coronavirus HKU1 (PCR) Not detected (Not Detect) Coronavirus 229E (PCR) Not detected (Not Detect) SARS-CoV-2 (PCR) Not detected (Not Detecte) Coronavirus NL63 (PCR) Not detected (Not Detect) Human Metapneumovir PCR Not detected (Not Detect) Influenza Type A (PCR) Not detected (Not Detect) Influenza Type B (PCR) Not detected (Not Detect) M. pneumoniae (PCR) Not detected (Not Detect) Parainfluenza 1 (PCR) Not detected (Not Detect) Parainfluenza 2 (PCR) Not detected (Not Detect) Parainfluenza 3 (PCR) Not detected (Not Detect) Parainfluenza 4 (PCR) Not detected (Not Detect) RSV (PCR) Not detected (Not Detect) Entero/Rhino (PCR) Not detected (Not Detect) MDM Narrative Medical decision making narrative: Patient is a 24-year-old male no pertinent past medical history comes into the ED from home for evaluation of persistent/worsening shortness breath, states it has been ongoing persistent for the past week, states that he works it [employer], states that he may have been exposed to some chemicals, however he states that he went into a walk-in clinic yesterday got a chest x-ray and was tested for COVID flu which was negative. He states that he used his inhaler but states that he feels like his shortness breath is worse, on evaluation is speaking full sentences protecting airway not requiring any supplemental oxygen auscultation bilateral lung florez are clear without any wheezes rhonchi or rales. Did give patient albuterol and nebulizer, Solu-Medrol, obtained lab work and CT angio PE. Patient's lab work did show slight leukocytosis of 11.4, did have slight hypokalemia of the 0.2, otherwise no severe electrolyte abnormality, respiratory panel was negative, CT PE scan showed no signs of PE but did show left perihilar region in the lingula with interstitial type infiltrate atypical versus viral suspected, given this finding we will treat patient with azithromycin for atypical pneumonia, she will be discharged home with strict return precautions and follow up with primary care in outpatient setting he is not requiring supplemental oxygen he is well-appearing nontoxic patient will be discharged home with outpatient follow up he understands agrees with this plan. Discharge Plan Departure Patient Disposition: Home Clinical Impression: Atypical pneumonia Instructions: DI for Atypical Pneumonia Activity Restrictions/Additional Instructions: Please follow up with your primary care doctor in outpatient setting Please read the discharge instructions sheet carefully and bring all papers to all doctor follow-up visits, as it may contain information that your doctor may want to see. Disease processes change and evolve, if your symptoms worsen or if you develop any new symptoms that are concerning to you please return for evaluation. Your evaluation today does not show any evidence of any life- threatening/serious illnesses requiring admission to the hospital or surgery. Please follow-up with your doctor for re-evaluation in approximately 1 day. Seek immediate medical attention for any worrisome symptoms. *If you do not have a primary care provider please contact the [facility] Resource line at [phone]. They will ask some questions about your medical history and help get you set up with a doctor in the community. Prescriptions: New azithromycin 250 mg tablet 250 mg PO DAILY 4 Days Qty: 6 0RF Rx Instructions: start on day 2 of therapy No Action albuterol sulfate 90 mcg/actuation HFA aerosol inhaler 2 puff inhalation Q6H PRN (Reason: shortness of breath or wheezing) Qty: 8.5 0RF Referrals: Tristin Obregon MD [Primary Care Provider, Family Practice] Stand Alone Forms: Patient Portal/API
--- NOTE | 2025-08-04 18:39 | DI.CT.S_ITS ---
PROCEDURE: CT ANGIO CHEST PE PROTOCOL INDICATIONS: Short of breath TECHNIQUE: After the administration of intravenous contrast, 2 mm thick sections acquired from the pulmonary apices to the posterior costophrenic angles. 3-dimensional maximum intensity projection (MIP) coronal and sagittal reformats were then acquired through the thorax. For radiation dose reduction, the following was used: automated exposure control, adjustment of mA and/or kV according to patient size. COMPARISON: [facility], CR, XR CHEST 2V, 08/02/2025, 14:53. FINDINGS: Image quality: Diagnostic. Pulmonary arteries: Pulmonary arteries are normal in size, and demonstrate no intraluminal filling defects to suggest central pulmonary embolism. Lower Neck: No enlarged lymph nodes. Thyroid: No thyroid nodules which require sonographic follow up, per consensus guidelines. Axillae: No enlarged lymph nodes. Chest Wall: Unremarkable. Bones: Unremarkable. Lungs and Pleura: No pneumothorax or pleural effusions. There is mild interstitial type prominence seen within the left perihilar region and the lingula. No suspicious pulmonary nodule can be seen. Heart: Heart size is normal. No pericardial effusion. Thoracic Vessels: No aortic aneurysm. Mediastinum and Jewels: No enlarged lymph nodes. Esophagus: No wall thickening. No hiatal hernia. Upper Abdomen: Visualized upper abdomen solid organs and bowel loops appear normal. IMPRESSION: No pulmonary embolus. Within the left perihilar region in the lingula, there is interstitial type infiltrate. Atypical/viral infection is suspected. Dictated by: Myron Rios M.D. on 08/04/2025 at 18:46 Approved by: Myron Rios M.D. on 08/04/2025 at 18:47
[2025-08-04] MEDS: ALBUTEROL 2.5 MG/3 ML NEB (ADULT) INH (18:58)
[2025-08-04] MEDS: methylPREDNISolone succ 125 MG/2 ML VIAL IV (19:03)
--- NOTE | 2025-08-04 19:17 | EKG_ITS ---
[address] [address] Test Date: 2025-08-04 Pat Name: Elie Davis Department: [facility] Room: Gender: Male Lens Grinder: NATHANIEL VILLALOBOS : 2000 Requested By: Order Number: [id number] Reading MD: Edward Conley Measurements Intervals [place] Rate: 95 P: 60 NE: 146 QRS: 51 QRSD: 78 T: -29 QT: 330 QTc: 414 Interpretive Statements Normal sinus rhythm T wave abnormality, consider inferior ischemia T wave abnormality, consider anterolateral ischemia Electronically Signed On 08-10-2025 12:19:47 PST by Edward Conley
[2025-08-04 19:27] LABS: Add Manual Diff / Slide Review NO; Hematocrit 41.8 % (41-53); Hemoglobin 14.1 g/dL (13.5-17.5); Lymphocytes Absolute Auto 4800 /uL (1100-4500); Mean Corpuscular HGB Conc 33.7 % (30-36); Mean Corpuscular Hemoglobin 29.2 PG (26-34); Mean Corpuscular Volume 86.7 fL (80-100); Platelet Count 357 X10^3/uL (150-400)
[2025-08-04 19:42] LABS: Alanine Aminotransferase 42 IU/L (<50); Albumin 4.7 g/dL (3.5-5.0); Albumin Globulin Ratio 1.3 (1.0-2.8); Alkaline Phosphatase 89 U/L (38-126); Blood Urea Nitrogen 20 mg/dL (9-20); Calcium 9.3 mg/dL (8.4-10.2); Carbon Dioxide 23 mmol/L (22-32); Chloride 105 mmol/L (98-107); Estimated Glomerular Filt Rate > 60 mL/min (>60); Globulin 3.7 g/dL (1.7-4.1); Glucose 111 mg/dL (70-99); HEMOLYSIS < 15 (0-50); Lipase 124 U/L (23-300); Magnesium 2.0 mg/dL (1.6-2.3); Potassium 3.2 mmol/L (3.4-5.1); Sodium 140 mmol/L (137-145); Total Protein 8.4 g/dL (6.3-8.2)
[2025-08-04 19:51] LABS: NT-proBNP (BNP-Adult 18+) 66 pg/mL (<125)
[2025-08-04 20:48] LABS: Coronavirus NL 63 Not Detected (Not Detect); SARS- CoV-2 Not Detected (Not Detecte)
[2025-08-04] MEDS: AZITHROMYCIN 250 MG TABLET 500 MG PO (21:09)
[2025-08-04 21:10] VITALS: BP 133/89; PULSE 76; RESP 18; O2SAT 99
== END 2025-08-04 21:15 | disposition home or self-care (01) ==
PROVIDERS: Emergency Provider Student in an Organized Health Care Education/Training Program; PCP Family Medicine
DX: J18.9 Pneumonia, unspecified organism (principal); R06.02 Shortness of breath
CPT/HCPCS: 36415; 71275; 80053; 83690; 83735; 83880; 85025; 87633; 93005; 94640; 96374; 99284; J2919; J7613; Q9967